=== PATIENT | female | born 1970 | race Caucasian/White ===

== ENCOUNTER 2016-06-16 20:39 | Emergency (ER) | payer SELFPAY ==
[~2016-06-16] VITALS: Ht 157.5 cm; Wt 68.0 kg
[~2016-06-16 20:39] MED LIST: LORT5TAB PO; PENI500T PO; Z.0.NO CURRENT MEDS
[2016-06-16 20:41] VITALS: BP 144/82; PULSE 95; RESP 22; TEMP 98; O2SAT 97
[2016-06-16 21:18] VITALS: BP 117/73; PULSE 74; RESP 18; O2SAT 97
[2016-06-16] MEDS ORDERED: ASPIRIN 81 MG CHEW TAB PO ONE (21:30)
[2016-06-16] MEDS ORDERED: SODIUM CHLORID 0.9% 500 ML INJ 500 ML IV ONE (21:30)
[2016-06-16] MEDS ORDERED: SODIUM CHLORIDE 0.9% FLUSH 5 ML FLUSH IVF PRN (21:30)
[2016-06-16] MEDS ORDERED: METH40TA PO (21:35)
--- NOTE | 2016-06-16 21:36 | PD ---
HPI Chief Complaint: Chest Pain Time Seen by Provider: 21:15 Travel History International Travel<30 days: No Contact w/Intl Traveler<30days: No Traveled to known affect area: No History of Present Illness HPI Patient's a 45-year-old female who presented to emergency for evaluation of chest pain. Patient states her pain started 2 weeks ago, she reports in the left upper chest. She states it feels tight and pressure like. She denies any nausea, vomiting, abdominal pain, radiating pain, back pain. Patient states the pain is worse in the morning when she gets up to go to work. She reports smoking 2 packs per cigarettes a day for the last 3-4 months and this concerns her. Patient's sister approximately one year ago from complications related to IV drug use. Patient has endorsed a history of opiate addiction for which she is now on methadone for. Patient denies any IV drug use or illicit drug use. PFSH Past Medical History Blood Disorders: No Cancer: No Cardiovascular Problems: No Diminished Hearing: No Endocrine: No Genitourinary: No Hepatitis: Yes (UNSURE WHICH TYPE) Immune Disorder: No Musculoskeletal: No Neurologic: No Psychiatric: No Reproductive: No Respiratory: No ?: Not LMP: 06/07/16 : 3 Para: 0 : 3 Past Surgical History Abdominal Surgery: No Cardiac Surgery: No Ear Surgery: No Endocrine Surgery: No Eye Surgery: No Genitourinary Surgery: No Gynecologic Surgery: Yes ( X 3) Oral Surgery: No Thoracic Surgery: No Social History Alcohol Use: No Tobacco Use: Yes (1 PPD) Substance Use: No Allergies-Medications (Allergen,Severity, Reaction): Coded Allergies: No Known Allergies (Verified , 07/01/09) Reported Meds & Prescriptions Reported Meds & Active Scripts Active Reported Methadone (Methadone HCl) 40 Mg Tab 45 Mg PO DAILY Review of Systems Except as stated in HPI: all other systems reviewed are Neg General / Constitutional: No: Fever, Chills Eyes: No: Visual changes HENT: Positive: Headaches, No: Lightheadedness, Congestion, Neck Pain Cardiovascular: Positive: Chest Pain or Discomfort (pressure-like and tight), No: Palpitations, Diaphoresis, Syncope, Dyspnea on exertion Respiratory: No: Shortness of Breath Gastrointestinal: No: Nausea, Vomiting, Abdominal Pain Musculoskeletal: No: Myalgias Psychiatric: Positive: Anxiety, Depression, Substance Abuse (history of) Physical Exam Narrative GENERAL: Well-developed, well-nourished, alert female. Appears anxious and tearful, in no acute distress. Skin at bedside. SKIN: Warm and dry. HEAD: Atraumatic. Normocephalic. EYES: Pupils equal and round. No scleral icterus. No injection or drainage. ENT: No nasal bleeding or discharge. Mucous membranes pink and moist. NECK: Trachea midline. No JVD. CARDIOVASCULAR: Regular rate and rhythm. No murmur appreciated. RESPIRATORY: No accessory muscle use. Clear to auscultation. Breath sounds equal bilaterally. GASTROINTESTINAL: Abdomen soft, non-tender, nondistended. Hepatic and splenic margins not palpable. MUSCULOSKELETAL: No obvious deformities. No clubbing. No cyanosis. No edema. NEUROLOGICAL: Awake and alert. No obvious cranial nerve deficits. Motor grossly within normal limits. Normal speech. PSYCHIATRIC: Anxious mood and affect; insight and judgment normal. Data Data Last Documented VS Orders Electrocardiogram (06/16/16 20:45) Ckmb (Isoenzyme) Profile (06/16/16 21:19) Complete Blood Count With Diff (06/16/16 21:19) Comprehensive Metabolic Panel (06/16/16 21:19) Magnesium (Mg) (06/16/16 21:19) Prothrombin Time / Inr (Pt) (06/16/16 21:19) Act Partial Throm Time (Ptt) (06/16/16 21:19) Troponin I (06/16/16 21:19) Chest, Single Ap (06/16/16 21:19) Ecg Monitoring (06/16/16 21:19) Bilateral Bp Monitoring (06/16/16 21:19) Iv Access Insert/Monitor (06/16/16 21:19) Oximetry (06/16/16 21:19) Oxygen Administration (06/16/16 21:19) Aspirin Chew (Aspirin Chew) (06/16/16 21:30) Sodium Chloride 0.9% Flush (Ns Flush) (06/16/16 21:30) Sodium Chlorid 0.9% 500 Ml Inj (Ns 500 M (06/16/16 21:30) Lorazepam (Ativan) (06/16/16 22:00) CKMB (06/16/16 21:45) CKMB% (06/16/16 21:45) Labs MDM Medical Decision Making Medical Screen Exam Complete: Yes Emergency Medical Condition: Yes Interpretation(s) Vital Signs Date Time Temp Pulse Resp B/P Pulse Ox O2 Delivery O2 Flow Rate FiO2 06/16/16 21:24 21 98 Room Air 06/16/16 21:18 74 18 117/73 97 06/16/16 20:41 98.0 95 22 144/82 97 Room Air Differential Diagnosis Atypical chest pain versus acute NJ versus pleurisy versus pulmonary embolism versus anxiety versus panic disorder versus other Narrative Course Patient is a 45-year-old female who presented to emergency room for evaluation of chest pain. Initial examination patient appears anxious and tearful. Her symptoms have been on going for 2 weeks. They're worse in the morning and they are in the evening. She has a history of tobacco use for the last 30 years, but denies other risk factors for cardiac disease. She gets more tearful when she speaks about her sister passing away from complications of IV drug use. Patient placed on telemetry monitoring, continuous pulse oximetry, IV access initiated. Labs ordered and pending, EKG was reviewed by myself and my attending physician - sinus rhythm with a rate of 73. Chest x-ray shows no acute disease. Labs are pending, Ativan ordered per my attending physician. Care of patient transferred to my attending physician at the end of my shift. She will determine patient's disposition Aby Smalls Jun 16, 2016 21:36 Mean Platelet Volume 7.2 FL Neutrophils (%) (Auto) 53.0 % Lymphocytes (%) (Auto) 37.9 % Monocytes (%) (Auto) 5.5 % Eosinophils (%) (Auto) 2.3 % Basophils (%) (Auto) 1.3 % Neutrophils # (Auto) 4.6 TH/MM3 Lymphocytes # (Auto) 3.3 TH/MM3 Monocytes # (Auto) 0.5 TH/MM3 Eosinophils # (Auto) 0.2 TH/MM3 Basophils # (Auto) 0.1 TH/MM3 CBC Comment DIFF FINAL Differential Comment Prothrombin Time 10.6 SEC Prothromb Time International 1.0 RATIO Ratio Activated Partial 22.1 SEC Thromboplast Time MDM Medical Decision Making Medical Screen Exam Complete: Yes Emergency Medical Condition: Yes Interpretation(s) Vital Signs Date Time Temp Pulse Resp B/P Pulse Ox O2 Delivery O2 Flow Rate FiO2 06/16/16 21:24 21 98 Room Air 06/16/16 21:18 74 18 117/73 97 06/16/16 20:41 98.0 95 22 144/82 97 Room Air Differential Diagnosis Atypical chest pain versus acute NJ versus pleurisy versus pulmonary embolism versus anxiety versus panic disorder versus other Narrative Course Patient is a 45-year-old female who presented to emergency room for evaluation of chest pain. Initial examination patient appears anxious and tearful. Her symptoms have been on going for 2 weeks. They're worse in the morning and they are in the evening. She has a history of tobacco use for the last 30 years, but denies other risk factors for cardiac disease. She gets more tearful when she speaks about her sister passing away from complications of IV drug use. Patient placed on telemetry monitoring, continuous pulse oximetry, IV access initiated. Labs ordered and pending, EKG was reviewed by myself and my attending physician - sinus rhythm with a rate of 73. Chest x-ray shows no acute disease. Labs are pending, Ativan ordered per my attending physician. Care of patient transferred to my attending physician at the end of my shift. She will determine patient's disposition Aby Smalls Jun 16, 2016 21:36
--- NOTE | 2016-06-16 21:42 | RADRPT ---
EXAM DATE/TIME: 06/16/2016 21:19 [facility] COMPARISON: No previous studies available for comparison. INDICATIONS : Chest pressure. MEDICAL HISTORY : None. SURGICAL HISTORY : None. ENCOUNTER: Initial ACUITY: 1 month PAIN SCORE: 3/10 LOCATION: Bilateral chest FINDINGS: A single view of the chest demonstrates the lungs to be symmetrically aerated without evidence of mas s, infiltrate or effusion. The cardiomediastinal contours are unremarkable. Osseous structures are intact. CONCLUSION: No acute disease. Vinh Giraldo MD on June 16, 2016 at 21:41 Board Certified Radiologist. This report was verified electronically.
[2016-06-16] MEDS ORDERED: LORazepam 1 MG TAB PO ONE (22:00)
[2016-06-16 22:23] LABS: AUTOMATED NEUTROPHIL # 4.6 TH/MM3 (1.8-7.7); BASOPHIL # 0.1 TH/MM3 (0-0.2); BASOPHIL % 1.3 % (0.0-2.0); EOSINOPHIL # 0.2 TH/MM3 (0-0.4); EOSINOPHIL % 2.3 % (0.0-4.0); HEMATOCRIT 40.6 % (35.0-46.0); LYMPH % 37.9 % (9.0-44.0); LYMPHOCYTE # 3.3 TH/MM3 (1.0-4.8); MEAN CELL VOLUME 85.2 FL (80.0-100.0); MONO % 5.5 % (0.0-8.0); PLATELET COUNT 257 TH/MM3 (150-450); RED BLOOD COUNT 4.76 MIL/MM3 (4.00-5.30); RED CELL DISTRIBUTION WIDTH 13.4 % (11.6-17.2); WHITE BLOOD COUNT 8.6 TH/MM3 (4.0-11.0)
[2016-06-16 22:24] LABS: HEMO FLAGS DIFF FINAL
[2016-06-16 22:35] LABS: APTT (PATIENT) 22.1 SEC (24.3-30.1); PROTHROMBIN TIME - PATIENT 10.6 SEC (9.8-11.6)
[2016-06-16 23:20] LABS: ALKALINE PHOSPHATASE 93 U/L (45-117); ALT (GPT) 19 U/L (10-53); ANION GAP 7 MEQ/L (5-15); AST (GOT) 28 U/L (15-37); BICARBONATE 26.7 MEQ/L (21.0-32.0); BLOOD UREA NITROGEN 9 MG/DL (7-18); CHLORIDE 105 MEQ/L (98-107); CREATINE KINASE 146 U/L (26-192); GLOMERULAR FILTRATION RATE 91 ML/MIN (>89); MAGNESIUM 2.1 MG/DL (1.5-2.5); SODIUM (NA) 139 MEQ/L (136-145); TOTAL BILIRUBIN ADULT 0.3 MG/DL (0.2-1.0)
[2016-06-16 23:22] LABS: POTASSIUM 3.7 MEQ/L (3.5-5.1)
[2016-06-17 00:59] VITALS: BP 125/78; PULSE 78; RESP 19; O2SAT 97
--- NOTE | 2016-06-17 01:02 | PD ---
Physical Exam Narrative I, Dr. Leon, have reviewed the advance practice practitioner's documentation and am in agreement, met with the patient face to face, made the diagnosis, and the medical decision making was done by me. *My assessment and Findings: Atypical chest pain vs. anxiety 45yo F with atypical chest pain for 2 weeks. Pt has a lot of stress factors and is crying while giving history. Pt was given aspirin and ativan 1mg PO. Pt reevaluated at bedside and feels much better. Denies any more chest pain. Labs reviewed, unremarkable. Troponin negative. CXR negative. VS stable. Do not feel this is cardiac related. More anxiety. Return precautions given. Data Data Last Documented VS Vital Signs Date Time Temp Pulse Resp B/P Pulse Ox O2 Delivery O2 Flow Rate FiO2 06/17/16 00:59 78 19 125/78 97 Room Air 06/16/16 20:41 98.0 Orders Electrocardiogram (06/16/16 20:45) Ckmb (Isoenzyme) Profile (06/16/16 21:19) Complete Blood Count With Diff (06/16/16 21:19) Comprehensive Metabolic Panel (06/16/16 21:19) Magnesium (Mg) (06/16/16 21:19) Prothrombin Time / Inr (Pt) (06/16/16 21:19) Act Partial Throm Time (Ptt) (06/16/16 21:19) Troponin I (06/16/16 21:19) Chest, Single Ap (06/16/16 21:19) Ecg Monitoring (06/16/16 21:19) Bilateral Bp Monitoring (06/16/16 21:19) Iv Access Insert/Monitor (06/16/16 21:19) Oximetry (06/16/16 21:19) Oxygen Administration (06/16/16 21:19) Aspirin Chew (Aspirin Chew) (06/16/16 21:30) Sodium Chloride 0.9% Flush (Ns Flush) (06/16/16 21:30) Sodium Chlorid 0.9% 500 Ml Inj (Ns 500 M (06/16/16 21:30) Lorazepam (Ativan) (06/16/16 22:00) CKMB (06/16/16 21:45) CKMB% (06/16/16 21:45) Labs Laboratory Tests Test 06/16/16 21:45 White Blood Count 8.6 TH/MM3 Red Blood Count 4.76 MIL/MM3 Hemoglobin 13.8 GM/DL Hematocrit 40.6 % Mean Corpuscular Volume 85.2 FL Mean Corpuscular Hemoglobin 29.0 PG Mean Corpuscular Hemoglobin 34.0 % Concent Red Cell Distribution Width 13.4 % Platelet Count 257 TH/MM3 Mean Platelet Volume 7.2 FL Neutrophils (%) (Auto) 53.0 % Lymphocytes (%) (Auto) 37.9 % Monocytes (%) (Auto) 5.5 % Eosinophils (%) (Auto) 2.3 % Basophils (%) (Auto) 1.3 % Neutrophils # (Auto) 4.6 TH/MM3 Lymphocytes # (Auto) 3.3 TH/MM3 Monocytes # (Auto) 0.5 TH/MM3 Eosinophils # (Auto) 0.2 TH/MM3 Basophils # (Auto) 0.1 TH/MM3 CBC Comment DIFF FINAL Differential Comment Prothrombin Time 10.6 SEC Prothromb Time International 1.0 RATIO Ratio Activated Partial 22.1 SEC Thromboplast Time Sodium Level 139 MEQ/L Potassium Level 3.7 MEQ/L Chloride Level 105 MEQ/L Carbon Dioxide Level 26.7 MEQ/L Anion Gap 7 MEQ/L Blood Urea Nitrogen 9 MG/DL Creatinine 0.70 MG/DL Estimat Glomerular Filtration 91 ML/MIN Rate Random Glucose 86 MG/DL Calcium Level 8.3 MG/DL Magnesium Level 2.1 MG/DL Total Bilirubin 0.3 MG/DL Aspartate Amino Transf 28 U/L (AST/SGOT) Alanine Aminotransferase 19 U/L (ALT/SGPT) Alkaline Phosphatase 93 U/L Total Creatine Kinase 146 U/L Creatine Kinase MB 1.0 NG/ML Troponin I LESS THAN 0.02 NG/ML Total Protein 7.2 GM/DL Albumin 3.3 GM/DL [facility] Supervised Visit with TERI: Yes Interpretation(s) EKG: NSR 73bpm. Normal axis. No ST segment elevation or depression. TWI III. Laboratory Tests Test 06/16/16 21:45 White Blood Count 8.6 TH/MM3 (4.0-11.0) Red Blood Count 4.76 MIL/MM3 (4.00-5.30) Hemoglobin 13.8 GM/DL (11.6-15.3) Hematocrit 40.6 % (35.0-46.0) Mean Corpuscular Volume 85.2 FL (80.0-100.0) Mean Corpuscular Hemoglobin 29.0 PG (27.0-34.0) Mean Corpuscular Hemoglobin 34.0 % Concent (32.0-36.0) Red Cell Distribution Width 13.4 % (11.6-17.2) Platelet Count 257 TH/MM3 (150-450) Mean Platelet Volume 7.2 FL (7.0-11.0) Neutrophils (%) (Auto) 53.0 % (16.0-70.0) Lymphocytes (%) (Auto) 37.9 % (9.0-44.0) Monocytes (%) (Auto) 5.5 % (0.0-8.0) Eosinophils (%) (Auto) 2.3 % (0.0-4.0) Basophils (%) (Auto) 1.3 % (0.0-2.0) Neutrophils # (Auto) 4.6 TH/MM3 (1.8-7.7) Lymphocytes # (Auto) 3.3 TH/MM3 (1.0-4.8) Monocytes # (Auto) 0.5 TH/MM3 (0-0.9) Eosinophils # (Auto) 0.2 TH/MM3 (0-0.4) Basophils # (Auto) 0.1 TH/MM3 (0-0.2) CBC Comment DIFF FINAL Differential Comment Prothrombin Time 10.6 SEC (9.8-11.6) Prothromb Time International 1.0 RATIO Ratio Activated Partial 22.1 SEC Thromboplast Time (24.3-30.1) Sodium Level 139 MEQ/L (136-145) Potassium Level 3.7 MEQ/L (3.5-5.1) Chloride Level 105 MEQ/L (98-107) Carbon Dioxide Level 26.7 MEQ/L (21.0-32.0) Anion Gap 7 MEQ/L (5-15) Blood Urea Nitrogen 9 MG/DL (7-18) Creatinine 0.70 MG/DL (0.50-1.00) Estimat Glomerular Filtration 91 ML/MIN (>89) Rate Random Glucose 86 MG/DL (74-106) Calcium Level 8.3 MG/DL (8.5-10.1) Magnesium Level 2.1 MG/DL (1.5-2.5) Total Bilirubin 0.3 MG/DL (0.2-1.0) Aspartate Amino Transf 28 U/L (15-37) (AST/SGOT) Alanine Aminotransferase 19 U/L (10-53) (ALT/SGPT) Alkaline Phosphatase 93 U/L (45-117) Total Creatine Kinase 146 U/L (26-192) Creatine Kinase MB 1.0 NG/ML (0.5-3.6) Troponin I LESS THAN 0.02 NG/ML (0.02-0.05) Total Protein 7.2 GM/DL (6.4-8.2) Albumin 3.3 GM/DL (3.4-5.0) Last Impressions Chest X-Ray 06/16/16 4429 Signed Impressions: Service Date/Time: Thursday, June 16, 2016 21:19 - CONCLUSION: No acute disease. Vinh Giraldo MD Diagnosis Primary Impression: Atypical chest pain Patient Instructions: General Instructions Departure Forms: Tests/Procedures Additional Instruction: Please follow up with your PMD in 3-7 days. Return to the ED if symptoms worsen. Med/Other Pt SpecificInfo: No Change to Meds Disposition: 01 DISCHARGE HOME Condition: Stable Zhanna Leon DO Jun 17, 2016 01:02
--- NOTE | 2016-06-17 22:35 | EKG ---
Date Performed: 06/16/2016 Time Performed: 21:01:43 PTAGE: 45 years EKG: Sinus rhythm NORMAL ECG NO PREVIOUS TRACING Compared to the previous tracing, sinus tachycardia is no longer pre sent DOCTOR: Andrea Gregorio Interpretating Date/Time 06/17/2016 22:32:40
== END 2016-06-17 02:19 | disposition home or self-care (01) ==
LOC: NEPC 20:39
DX: R07.89 Other chest pain (principal); F17.210 Nicotine dependence, cigarettes, uncomplicated; F41.9 Anxiety disorder, unspecified
CPT/HCPCS: 71010; 80053; 82550; 82552; 83735; 84484; 85025; 85610; 85730; 93005